=== PATIENT | female | born 2000 | race Caucasian/White ===

== ENCOUNTER 2021-02-14 12:11 | Emergency (ER) | payer BC, MEDICAID ==
[2021-02-14 12:17] VITALS: BP 134/86
[2021-02-14] MEDS ORDERED: TOPIRAMATE25 MG PO (12:19)
[2021-02-14] MEDS ORDERED: LEVOTHYROXINE0.2 MG PO (12:19)
[2021-02-14] MEDS ORDERED: SERTRALINE HYD100 MG PO (12:19)
[2021-02-14 13:06] LABS: EOS # 0.1 (0.04-0.40); EOS % 1.2 % (1.0-5.0); HEMATOCRIT 46.1 % (37.0-47.0); HEMOGLOBIN 15.4 g/dL (12.5-16.0); LYMPH# 1.8 (1.50-4.00); MEAN CELL VOLUME 86 fl (78-100); MEAN CORPUSCULAR HEMOGLOBIN 29 pg (27-31); MEAN CORPUSCULAR HGB CONC 33 g/dL (33-37); MEAN PLATELET VOLUME 9.4 fl (7.4-10.4); MONO # 0.5 (0.20-0.80); NEU # 5.7 (1.40-6.50); PLATELET COUNT 275 K/mm3 (130-400); RED BLOOD COUNT 5.36 M/mm3 (4.10-5.30); RED CELL DISTRIBUTION WIDTH 13.5 % (11.5-14.5); WHITE BLOOD COUNT 8.2 K/mm3 (4.8-10.8)
[2021-02-14 13:21] LABS: ALBUMIN 4.3 g/dL (3.5-5.0); POTASSIUM 4.1 mmol/L (3.5-5.1)
[2021-02-14 13:22] LABS: CALCIUM 9.5 mg/dL (8.3-10.5)
[2021-02-14 13:23] LABS: TOTAL PROTEIN 7.6 g/dL (6.4-8.3)
[2021-02-14 13:25] LABS: TOTAL BILIRUBIN 0.4 mg/dL (0.2-1.2)
== END 2021-02-14 13:58 | disposition home or self-care (01) ==
LOC: ED 12:11
PROVIDERS: Physician Assistant
DX: N93.9 Abnormal uterine and vaginal bleeding, unspecified (principal); E03.9 Hypothyroidism, unspecified; F32.9 Major depressive disorder, single episode, unspecified; F17.290 Nicotine dependence, other tobacco product, uncomplicated; Z32.02 Encounter for pregnancy test, result negative; Z88.1 Allergy status to other antibiotic agents; Z79.899 Other long term (current) drug therapy; Z79.890 Hormone replacement therapy

== ENCOUNTER → 2021-07-02 | Outpatient (CLI) | payer BC, MEDICAID ==
[~2021-07-02] MED LIST: ADIPEX-P37.5 M2 PO; AUGMENTIN 875-1 EAC1 PO; DIFLUCAN150 M1 PO; LEVOTHYROXINE0.2 MG PO; LEVOXYL0.112 MG PO; SERTRALINE HYD100 MG PO; TOPIRAMATE25 MG PO
== END ==
LOC: LAB 16:43
DX: Z20.822 Contact with and (suspected) exposure to COVID-19 (principal)

== ENCOUNTER 2021-08-31 01:44 | Emergency (ER) | payer BC, MEDICAID ==
[~2021-08-31] VITALS: Ht 160 cm; Wt 104.5 kg
[~2021-08-31 01:44] MED LIST changes: -ADIPEX-P37.5 M2 PO; -AUGMENTIN 875-1 EAC1 PO; -DIFLUCAN150 M1 PO; -LEVOXYL0.112 MG PO
[2021-08-31 02:00] VITALS: BP 122/85
[2021-08-31] MEDS ORDERED: LEVOXYL0.112 MG PO (02:10)
[2021-08-31] MEDS ORDERED: ADIPEX-P37.5 M2 PO (02:11)
[2021-08-31] MEDS ORDERED: AUGMENTIN 875-1 EAC1 PO (02:18)
[2021-08-31] MEDS ORDERED: DIFLUCAN150 M1 PO (02:18)
== END 2021-08-31 02:30 | disposition home or self-care (01) ==
LOC: ED 01:44
DX: K04.7 Periapical abscess without sinus (principal); E03.9 Hypothyroidism, unspecified; Z88.1 Allergy status to other antibiotic agents; Z79.890 Hormone replacement therapy

== ENCOUNTER 2022-08-15 18:24 | Emergency (ER) | payer MEDICAID ==
[~2022-08-15 18:24] MED LIST changes: +ADIPEX-P37.5 M2 PO; +AUGMENTIN 875-1 EAC1 PO; +DIFLUCAN150 M1 PO; +LEVOXYL0.112 MG PO
[2022-08-15] MEDS ORDERED: LEVOTHYROXINE0.15 MG PO (18:31)
[2022-08-15] MEDS ORDERED: AMOXICILLIN 50500 MG PO ×2 (19:25→19:32)
[2022-08-15] MEDS ORDERED: DIFLUCAN150 M1 PO ×2 (19:25→19:32)
[2022-08-15 19:35] VITALS: BP 147/84
== END 2022-08-15 19:36 | disposition home or self-care (01) ==
LOC: ED 18:24
DX: U07.1 COVID-19 (principal); J02.0 Streptococcal pharyngitis; Z88.1 Allergy status to other antibiotic agents